=== PATIENT | male | born 1945 | race Caucasian/White ===

== ENCOUNTER 2019-08-20 13:59 | Outpatient (RCR) | payer OTHER, SELFPAY | END 2019-11-18 23:59 | disposition home or self-care (01) | LOC: ANHDMC 13:59 | PROVIDERS: PCP Internal Medicine; Visit Provider Internal Medicine | DX: E11.59 Type 2 diabetes mellitus with other circulatory complications (principal); E11.65 Type 2 diabetes mellitus with hyperglycemia; Z79.4 Long term (current) use of insulin; Z71.89 Other specified counseling | CPT/HCPCS: G0108 ==

== ENCOUNTER 2020-07-01 08:07 | Outpatient (CLI) | payer OTHER, SELFPAY | END 2020-07-01 08:08 | disposition home or self-care (01) | LOC: ANHCSM 08:07 | PROVIDERS: PCP Internal Medicine; Visit Provider Internal Medicine | DX: G47.10 Hypersomnia, unspecified (principal) | CPT/HCPCS: 99199; 95806 ==

== ENCOUNTER 2020-09-29 13:14 | Outpatient (CLI) | payer OTHER, MEDICARE, SELFPAY | END 2020-09-29 13:15 | disposition home or self-care (01) | LOC: ANHCOVIDVC 13:14 | PROVIDERS: PCP Internal Medicine | DX: Z23 Encounter for immunization (principal) | CPT/HCPCS: 0001A; 91300 ==

== ENCOUNTER 2020-10-20 13:14 | Outpatient (CLI) | payer OTHER, MEDICARE, SELFPAY | END 2020-10-20 13:15 | disposition home or self-care (01) | LOC: ANHCOVIDVC 13:14 | PROVIDERS: PCP Internal Medicine | DX: Z23 Encounter for immunization (principal) | CPT/HCPCS: 0002A; 91300 ==